=== PATIENT | female | born 1975 | race Caucasian/White ===

== ENCOUNTER 2019-03-27 20:32 | Emergency (ER) | payer OTHER ==
[~2019-03-27] VITALS: Ht 170.2 cm; Wt 132.0 kg
[2019-03-27] MEDS ORDERED: IBUPROFEN 600 MG TAB PO ONE (20:45)
[2019-03-28 00:05] VITALS: BP 162/88
== END 2019-03-28 00:21 | disposition home or self-care (01) ==
LOC: ER 20:35
DX: J02.9 Acute pharyngitis, unspecified (principal); E11.9 Type 2 diabetes mellitus without complications